=== PATIENT | female | born 2000 | race Two or more races ===

== ENCOUNTER 2022-02-13 04:00 | Emergency (ER) | payer BC ==
[2022-02-13] MEDS ORDERED: Ondansetron 4 MG/2 ML SDV IVPUSH ONE (23:05)
[2022-02-13] MEDS ORDERED: Sodium Chloride 0.9% 1,000 ML IV ONE (23:05)
[2022-02-13] MEDS ORDERED: Acetaminophen 500 MG Tab PO ONE (23:05)
[2022-03-21 12:51] LABS: BLOOD UREA NITROGEN,BUN 6 mg/dL (7.0-18.0); CARBON DIOXIDE,CO2 25.8 mmol/L (21.0-32.0); CHLORIDE,CL 102 mmol/L (98-107); ESTIMATED GFR 143 mL/min (>60); GLUCOSE RANDOM 88 mg/dL (74-106); POTASSIUM,K 3.6 mmol/L (3.5-5.1); SODIUM,NA 136 mmol/L (136-145)
== END 2022-02-14 01:10 | disposition home or self-care (01) ==
LOC: MW.ED 04:00
DX: R51.9 Headache, unspecified (principal); Z20.822 Contact with and (suspected) exposure to COVID-19
CPT/HCPCS: 36415; 80053; 81001; 84702; 85025; 87635; 96361; 96374; 99284; A9270; J2405; J7030; 99282; U0002

== ENCOUNTER 2022-05-25 07:26 | Emergency (ER) | payer BC ==
[2022-05-25] MEDS ORDERED: Acetaminophen 325 MG Tab PO ONE (08:06)
[2022-05-25 08:21] LABS: CORONAVIRUS COVID-19 NAA NEGATIVE (NEGATIVE); INFLUENZA A NAA POSITIVE (NEGATIVE); INFLUENZA B NAA NEGATIVE (NEGATIVE)
== END 2022-05-25 09:03 | disposition home or self-care (01) ==
LOC: MW.ED 07:26
DX: J10.1 Influenza due to other identified influenza virus with other respiratory manifestations (principal); Z91.030 Bee allergy status; Z20.822 Contact with and (suspected) exposure to COVID-19
CPT/HCPCS: 0240U; 99283; A9270

== ENCOUNTER 2022-07-03 07:19 | Emergency (ER) | payer BC ==
[2022-07-03 08:17] LABS: CORONAVIRUS COVID-19 NAA NEGATIVE (NEGATIVE); INFLUENZA A NAA NEGATIVE (NEGATIVE); INFLUENZA B NAA NEGATIVE (NEGATIVE); RESPIRATORY SYNCYTIAL VIR NAA NEGATIVE (NEGATIVE)
== END 2022-07-03 08:42 | disposition home or self-care (01) ==
LOC: MW.ED 07:19
DX: B34.9 Viral infection, unspecified (principal); Z20.822 Contact with and (suspected) exposure to COVID-19
CPT/HCPCS: 0241U; 87651; 99283

== ENCOUNTER 2022-08-20 10:18 | Inpatient (IN) | payer BC, MEDICAID ==
[2022-08-20] MEDS ORDERED: Phenylephrine HCl 0.5 MG/5 ML AMP IVPUSH PRN (11:12)
[2022-08-20] MEDS ORDERED: ePHEDrine 50 MG/ML SDV IVPUSH PRN ×2 (11:12)
[2022-08-20] MEDS ORDERED: Ropivacaine HCl/PF 400 MG in Premix Bag 1 BAG EPIDUR SCH (11:15)
[2022-08-20] MEDS ORDERED: Sodium Chloride 0.9% 2.5 ML Syringe FLUSH PRN (11:40)
[2022-08-20] MEDS ORDERED: Tranexamic Acid 1,000 MG in Sodium Chloride 0.9% 100 ML IV PRN (11:40)
[2022-08-20] MEDS ORDERED: Butorphanol 1 MG/ML SDV IVPUSH PRN (11:40)
[2022-08-20] MEDS ORDERED: Carboprost Tromethamine 250 MCG/1 ML Amp IM PRN (11:40)
[2022-08-20] MEDS ORDERED: Lidocaine 1% 50 ML MDV INJECT PRN (11:40)
[2022-08-20] MEDS ORDERED: Sodium Chloride 0.9% 20 ML SDV IV PRN (11:40)
[2022-08-20] MEDS ORDERED: Misoprostol 200 MCG Tab PO PRN (11:40)
[2022-08-20] MEDS ORDERED: Sodium Chloride 0.9% 10 ML Syringe FLUSH PRN (11:40)
[2022-08-20] MEDS ORDERED: Water For Irrigation,Sterile 1,000 ML Container IRR PRN (11:40)
[2022-08-20] MEDS ORDERED: Methylergonovine 0.2 MG/1 ML Amp IM PRN (11:40)
[2022-08-20] MEDS ORDERED: Oxytocin/0.9 % Sodium Chloride 30 UNIT/500 ML BAG IV SCH ×2 (11:45→13:00)
[2022-08-20] MEDS ORDERED: Sodium Chloride 0.9% 100 ML ONE (11:52)
[2022-08-20] MEDS ORDERED: Ampicillin 2 GM Vial ONE (11:52)
[2022-08-20] MEDS: Lactated Ringers 1,000 ML IV SCH (12:07)
[2022-08-20] MEDS ORDERED: Ampicillin 2 GM in Sodium Chloride 0.9% 100 ML IV ONE (12:30)
[2022-08-20] MEDS ORDERED: Misoprostol 25 MCG (1/4 of 100 MCG) Tab VAG PRN ×2 (12:54)
[2022-08-20] MEDS ORDERED: Terbutaline 1 MG/ML SDV SUBCUT PRN (12:54)
[2022-08-20] MEDS: Ampicillin 1 GM in Sodium Chloride 0.9% 50 ML IV SCH ×2 (16:41→20:38)
[2022-08-20] MEDS: Ondansetron 4 MG/2 ML SDV IVPUSH PRN (23:46)
[2022-08-21] MEDS: Ampicillin 1 GM in Sodium Chloride 0.9% 50 ML IV SCH ×3 (00:42→08:13)
[2022-08-21] MEDS: Lactated Ringers 1,000 ML IV SCH ×2 (01:21→02:29)
[2022-08-21] MEDS ORDERED: Dexmedetomidine 200 MCG/2 ML SDV ONE (01:47)
[2022-08-21] MEDS: Ondansetron 4 MG/2 ML SDV IVPUSH PRN (07:16)
[2022-08-21] MEDS ORDERED: Measles, Mumps & Rubella Vaccine 0.5 ML SDV SUBCUT ONE (10:38)
[2022-08-21] MEDS ORDERED: Aluminum Hydroxide/Magnesium Hydroxide/Simethicone XS Susp 30 ML Cup PO PRN (10:38)
[2022-08-21] MEDS ORDERED: oxyCODONE 5 MG Tab PO PRN (10:38)
[2022-08-21] MEDS ORDERED: Bisacodyl 10 MG Supp RECTAL PRN (10:38)
[2022-08-21] MEDS ORDERED: Simethicone 80 MG Tab.Chew PO PRN (10:38)
[2022-08-21] MEDS ORDERED: Acetaminophen 500 MG Tab PO PRN (10:38)
[2022-08-21] MEDS ORDERED: Famotidine 20 MG Tab PO PRN (10:38)
[2022-08-21] MEDS ORDERED: Lanolin 100% Cream 7 GM Tube TOP PRN (10:38)
[2022-08-21] MEDS ORDERED: Acetaminophen/Codeine 300-30 MG Tab PO PRN ×2 (10:38→10:43)
[2022-08-21] MEDS: Benzocaine/Menthol 20%-0.5% Spray 78 GM Cannister TOP PRN (12:11)
[2022-08-21] MEDS: Witch Hazel Medicated Pads 40/Jar TOP PRN (12:11)
[2022-08-21] MEDS: Ibuprofen 800 MG Tab PO PRN (12:11)
[2022-08-21] MEDS: Docusate Sodium 100 MG Cap PO PRN (14:58)
[2022-08-22] MEDS: Ibuprofen 800 MG Tab PO PRN ×3 (00:18→17:28)
[2022-08-22] MEDS: Witch Hazel Medicated Pads 40/Jar TOP PRN (08:06)
[2022-08-22] MEDS: Benzocaine/Menthol 20%-0.5% Spray 78 GM Cannister TOP PRN (08:08)
[2022-08-23] MEDS: Docusate Sodium 100 MG Cap PO PRN (04:46)
[2022-08-23] MEDS: Ibuprofen 800 MG Tab PO PRN (08:19)
== END 2022-08-23 10:17 | disposition home or self-care (01) | DRG 560 ==
LOC: MW.OBCHECK 10:18 → MW.OB 10:20 → MW.OBCHECK 08-21 09:00 → MW.OB 08-21 09:00 → OBSVTOIN 08-21 22:00
PROVIDERS: ADMIT Obstetrics & Gynecology; ATTEND Obstetrics & Gynecology
PROC: 10E0XZZ Delivery of Products of Conception, External Approach (ICD-10-PCS; principal; 2022-08-20)
PROC: 3E0R3BZ Introduction of Anesthetic Agent into Spinal Canal, Percutaneous Approach (ICD-10-PCS; 2022-08-20)
PROC: 00HU33Z Insertion of Infusion Device into Spinal Canal, Percutaneous Approach (ICD-10-PCS; 2022-08-20)
PROC: 0UQMXZZ Repair Vulva, External Approach (ICD-10-PCS; 2022-08-20)
PROC: 0UQJXZZ Repair Clitoris, External Approach (ICD-10-PCS; 2022-08-20)
DX: O42.02 Full-term premature rupture of membranes, onset of labor within 24 hours of rupture (principal); O99.824 Streptococcus B carrier state complicating childbirth; O99.52 Diseases of the respiratory system complicating childbirth; J45.909 Unspecified asthma, uncomplicated; O70.0 First degree perineal laceration during delivery; O71.89 Other specified obstetric trauma; Z37.0 Single live birth; Z3A.40 40 weeks gestation of pregnancy
CPT/HCPCS: 01967; 36415; 51702; 59025; 59409; 84112; 85014; 85018; 85027; 86592; 86850; 86900; 86901; A9270-GY; J0290; J2405; J2590; J3490; J7120

== ENCOUNTER 2023-11-11 14:59 | Emergency (ER) | payer MEDICAID ==
[2023-11-11 16:12] LABS: APPEARANCE,URINE CLEAR; BILIRUBIN,URINE NEGATIVE (NEGATIVE); COLOR,URINE YELLOW; GLUCOSE,URINE NEGATIVE (NEGATIVE); KETONES,URINE NEGATIVE (NEGATIVE); LEUKOCYTE ESTERASE,URINE NEGATIVE (NEGATIVE); NITRITE,URINE NEGATIVE (NEGATIVE); OCCULT BLOOD,URINE TRACE-INTACT (NEGATIVE); PROTEIN,URINE NEGATIVE (NEGATIVE); UROBILINOGEN,URINE 0.2 EU/dL (<2.0)
[2023-11-11 16:22] LABS: BACTERIA,URINE FEW (NEGATIVE); EPITHELIAL CELLS,URINE OCCASIONAL (NONE-FEW); MUCUS,URINE LIGHT (NONE-MOD); RBC,URINE 0-2 (0-2/HPF); WBC,URINE 0-2 (0-5/HPF)
[2023-11-11 17:27] LABS: CANDIDA DNA PROBE NEGATIVE (NEGATIVE); GARDNERELLA DNA PROBE NEGATIVE (NEGATIVE); TRICHOMONAS DNA PROBE NEGATIVE (NEGATIVE)
[2023-11-11] MEDS: cefTRIAXone 500 MG in Lidocaine 1% 1 ML IM ONE ×2 (19:02→19:04)
[2023-11-11 20:06] LABS: C. TRACHOMATIS BY PCR NOT DETECTED; N. GONORRHOEAE BY PCR NOT DETECTED
== END 2023-11-11 19:22 | disposition home or self-care (01) ==
LOC: MW.ED 14:59
DX: N39.0 Urinary tract infection, site not specified (principal); N89.8 Other specified noninflammatory disorders of vagina; Z91.013 Allergy to seafood; Z75.8 Other problems related to medical facilities and other health care
CPT/HCPCS: 81001; 81025; 87480; 87491; 87510; 87591; 87660; 96372; 99284; J0696; J3490

== ENCOUNTER 2024-03-08 12:39 | Emergency (ER) | payer MEDICAID ==
[2024-03-08 13:42] LABS: CORONAVIRUS COVID-19 NAA NEGATIVE (NEGATIVE); INFLUENZA A NAA NEGATIVE (NEGATIVE); INFLUENZA B NAA NEGATIVE (NEGATIVE); RESPIRATORY SYNCYTIAL VIR NAA NEGATIVE (NEGATIVE)
[2024-03-08 13:59] LABS: APPEARANCE,URINE CLEAR; BILIRUBIN,URINE NEGATIVE (NEGATIVE); COLOR,URINE YELLOW; GLUCOSE,URINE NEGATIVE (NEGATIVE); KETONES,URINE TRACE mg/dL (NEGATIVE); LEUKOCYTE ESTERASE,URINE NEGATIVE (NEGATIVE); NITRITE,URINE NEGATIVE (NEGATIVE); OCCULT BLOOD,URINE NEGATIVE (NEGATIVE); PROTEIN,URINE NEGATIVE (NEGATIVE); UROBILINOGEN,URINE 0.2 EU/dL (<2.0)
[2024-03-08] MEDS ORDERED: Ketorolac 30 MG/ML SDV IM ONE (14:12)
== END 2024-03-08 14:51 | disposition home or self-care (01) ==
LOC: MW.ED 12:39
DX: B34.9 Viral infection, unspecified (principal); Z75.8 Other problems related to medical facilities and other health care; Z91.013 Allergy to seafood; Z79.899 Other long term (current) drug therapy
CPT/HCPCS: 0241U; 81003; 81025; 87651; 99283

== ENCOUNTER 2024-06-03 21:52 | Emergency (ER) | payer MEDICAID ==
[2024-06-03 22:55] LABS: BASOPHILS ABSOLUTE AUTO 0.02 K/uL (0.00-0.20); BASOPHILS PERCENT AUTO 0.2 % (0.0-1.0); EOSINOPHILS ABSOLUTE AUTO 0.07 K/uL (0.00-0.45); EOSINOPHILS PERCENT AUTO 0.8 % (0.0-6.0); HEMATOCRIT 34.1 % (37.0-47.0); HEMOGLOBIN 11.6 g/dL (12.0-16.0); IMMATURE GRAN ABSOLUTE AUTO 0.02 K/uL (0.00-0.05); IMMATURE GRAN PERCENT AUTO 0.2 % (0.0-0.4); LYMPHOCYTES ABSOLUTE AUTO 1.84 K/uL (1.00-4.80); LYMPHOCYTES PERCENT AUTO 20.5 % (24.0-44.0); MEAN CORPUSCULAR HEMOGLOBIN 29.9 pg (28.0-32.0); MEAN CORPUSCULAR VOLUME 87.9 fL (83.0-99.0); MEAN PLATELET VOLUME 9.3 fL (9.4-12.3); MONOCYTES ABSOLUTE AUTO 0.55 K/uL (0.00-0.80); MONOCYTES PERCENT AUTO 6.1 % (0.0-8.0); NEUTROPHILS ABSOLUTE AUTO 6.47 K/uL (1.80-7.70); NEUTROPHILS PERCENT AUTO 72.2 % (41.0-71.0); PLATELET COUNT,PLT 280 K/uL (150-400); RED BLOOD CELL COUNT 3.88 M/uL (4.10-5.30); WHITE BLOOD CELL COUNT,WBC 8.97 K/uL (3.9-11.3)
[2024-06-03 23:21] LABS: ALANINE AMINOTRANSFERASE,ALT 18 IU/L (14-63); ALBUMIN 3.5 g/dL (3.4-5.0); ALKALINE PHOSPHATASE 75 U/L (46-116); ASPARTATE AMNIOTRANSFERASE,AST 11 IU/L (15-37); BILIRUBIN TOTAL 0.1 mg/dL (0.2-1.0); BLOOD UREA NITROGEN,BUN 11 mg/dL (7.0-18.0); CALCIUM 9.1 mg/dL (8.5-10.1); CARBON DIOXIDE,CO2 26.9 mmol/L (21.0-32.0); CHLORIDE,CL 102 mmol/L (98-107); CREATININE 0.6 mg/dL (0.6-1.0); EST CRCL DRUG DOSING (CG) 102.95 mL/min; GLUCOSE RANDOM 84 mg/dL (74-106); POTASSIUM,K 3.7 mmol/L (3.5-5.1); SODIUM,NA 137 mmol/L (136-145)
[2024-06-03 23:23] LABS: ESTIMATED GFR 128 mL/min (>60)
== END 2024-06-04 00:33 | disposition home or self-care (01) ==
LOC: MW.ED 21:52
DX: O99.891 Other specified diseases and conditions complicating pregnancy (principal); R00.2 Palpitations; Z91.013 Allergy to seafood; Z79.899 Other long term (current) drug therapy; Z75.8 Other problems related to medical facilities and other health care; Z3A.01 Less than 8 weeks gestation of pregnancy
CPT/HCPCS: 36415; 80053; 84484; 85025; 93005; 93010; 99283; 99285

== ENCOUNTER 2024-07-01 06:18 | Emergency (ER) | payer MEDICAID ==
[2024-07-01 06:39] LABS: BASOPHILS ABSOLUTE AUTO 0.03 K/uL (0.00-0.20); BASOPHILS PERCENT AUTO 0.4 % (0.0-1.0); EOSINOPHILS ABSOLUTE AUTO 0.11 K/uL (0.00-0.45); EOSINOPHILS PERCENT AUTO 1.3 % (0.0-6.0); HEMATOCRIT 35.5 % (37.0-47.0); HEMOGLOBIN 12.6 g/dL (12.0-16.0); IMMATURE GRAN ABSOLUTE AUTO 0.02 K/uL (0.00-0.05); IMMATURE GRAN PERCENT AUTO 0.2 % (0.0-0.4); LYMPHOCYTES ABSOLUTE AUTO 1.88 K/uL (1.00-4.80); LYMPHOCYTES PERCENT AUTO 22.9 % (24.0-44.0); MEAN CORPUSCULAR HEMOGLOBIN 30.5 pg (28.0-32.0); MEAN CORPUSCULAR HGB CONC 35.5 g/dL (32.0-36.0); MEAN PLATELET VOLUME 9.2 fL (9.4-12.3); MONOCYTES ABSOLUTE AUTO 0.42 K/uL (0.00-0.80); MONOCYTES PERCENT AUTO 5.1 % (0.0-8.0); NEUTROPHILS ABSOLUTE AUTO 5.75 K/uL (1.80-7.70); NEUTROPHILS PERCENT AUTO 70.1 % (41.0-71.0); PLATELET COUNT,PLT 323 K/uL (150-400); RED BLOOD CELL COUNT 4.13 M/uL (4.10-5.30); WHITE BLOOD CELL COUNT,WBC 8.21 K/uL (3.9-11.3)
[2024-07-01 07:02] LABS: APPEARANCE,URINE CLEAR; BILIRUBIN,URINE NEGATIVE (NEGATIVE); COLOR,URINE YELLOW; GLUCOSE,URINE NEGATIVE (NEGATIVE); KETONES,URINE NEGATIVE (NEGATIVE); LEUKOCYTE ESTERASE,URINE NEGATIVE (NEGATIVE); NITRITE,URINE NEGATIVE (NEGATIVE); OCCULT BLOOD,URINE NEGATIVE (NEGATIVE); PH,URINE 7.5 (5.0-8.0); PROTEIN,URINE NEGATIVE (NEGATIVE); UROBILINOGEN,URINE 0.2 EU/dL (<2.0)
[2024-07-01 07:04] LABS: A/G RATIO 0.8 (0.9-1.6); ALBUMIN 3.2 g/dL (3.4-5.0); BILIRUBIN TOTAL 0.3 mg/dL (0.2-1.0); CARBON DIOXIDE,CO2 25.4 mmol/L (21.0-32.0); CREATININE 0.5 mg/dL (0.6-1.0); EST CRCL DRUG DOSING (CG) 123.54 mL/min; POTASSIUM,K 3.9 mmol/L (3.5-5.1); PROTEIN TOTAL,TP 7.2 g/dL (6.4-8.2)
== END 2024-07-01 09:31 | disposition home or self-care (01) ==
LOC: MW.ED 06:18
DX: O20.0 Threatened abortion (principal); Z91.013 Allergy to seafood; Z91.018 Allergy to other foods; Z79.899 Other long term (current) drug therapy; Z3A.11 11 weeks gestation of pregnancy
CPT/HCPCS: 36415; 76815; 76815-26; 80053; 81003; 84702; 84703; 85025; 86900; 86901; 99283; 99284

== ENCOUNTER 2025-01-14 06:04 | Inpatient (IN) | payer MEDICAID ==
[2025-01-14] MEDS ORDERED: Ketorolac 30 MG/ML SDV ONE (07:22)
[2025-01-14] MEDS ORDERED: Ondansetron 4 MG/2 ML SDV ONE (07:22)
[2025-01-14] MEDS ORDERED: Dexamethasone Sod Phos Preservative Free 10 MG/ML Vial ONE (07:22)
[2025-01-14] MEDS ORDERED: Ropivacaine 0.5% 5 MG/ML 30 ML SDV ONE (07:22)
[2025-01-14] MEDS ORDERED: Oxytocin 10 Units/1 ML SDV ONE (07:22)
[2025-01-14] MEDS ORDERED: Morphine PF 10 MG/10 ML SDV ONE (07:23)
[2025-01-14] MEDS ORDERED: fentaNYL 100 MCG/2 ML SDV ONE (07:23)
[2025-01-14] MEDS ORDERED: Sodium Chloride 0.9% 2.5 ML Syringe FLUSH PRN ×2 (07:35→10:32)
[2025-01-14] MEDS ORDERED: Sodium Chloride 0.9% 10 ML Syringe FLUSH PRN ×2 (07:35→10:32)
[2025-01-14 07:44] LABS: MEAN PLATELET VOLUME 9.9 fL (9.4-12.3); NRBC ABSOLUTE 0.00 K/uL (0.00-0.02); NRBC PERCENT 0.0 /100WBC (0.0-0.2); PLATELET COUNT,PLT 267 K/uL (150-400); RED BLOOD CELL COUNT 4.58 M/uL (4.10-5.30); WHITE BLOOD CELL COUNT,WBC 11.81 K/uL (3.9-11.3)
[2025-01-14] MEDS ORDERED: Lactated Ringers 1,000 ML IV SCH (07:45)
[2025-01-14] MEDS ORDERED: Oxytocin/0.9 % Sodium Chloride 30 UNIT/500 ML BAG IV SCH ×2 (07:45→10:45)
[2025-01-14] MEDS ORDERED: fentaNYL 100 MCG/2 ML SDV IVPUSH PRN (09:12)
[2025-01-14] MEDS ORDERED: Nalbuphine 10 MG/1 ML Vial IVPUSH PRN (09:12)
[2025-01-14] MEDS ORDERED: Acetaminophen/oxyCODONE 325-5 MG Tab PO PRN (09:12)
[2025-01-14] MEDS ORDERED: Ondansetron 4 MG/2 ML SDV IVPUSH PRN ×2 (09:12→10:32)
[2025-01-14] MEDS ORDERED: Lanolin 100% Cream 7 GM Tube TOP PRN (10:32)
[2025-01-14] MEDS ORDERED: Carboprost Tromethamine 250 MCG/1 mL Vial IM PRN (10:32)
[2025-01-14] MEDS ORDERED: Naloxone 0.4 MG/ML SDV IVPUSH PRN (10:32)
[2025-01-14] MEDS: diphenhydrAMINE 50 MG/ML SDV IVPUSH PRN (12:35)
[2025-01-14] MEDS: Citric Acid/Sodium Citrate Solution 30 ML Cup PO ONE (14:00)
[2025-01-14] MEDS: Ketorolac 30 MG/ML SDV IVPUSH SCH (15:05)
[2025-01-15] MEDS: Ketorolac 30 MG/ML SDV IVPUSH SCH (05:04)
[2025-01-15 05:48] LABS: BASOPHILS ABSOLUTE AUTO 0.02 K/uL (0.00-0.20); BASOPHILS PERCENT AUTO 0.1 % (0.0-1.0); EOSINOPHILS ABSOLUTE AUTO 0.02 K/uL (0.00-0.45); EOSINOPHILS PERCENT AUTO 0.1 % (0.0-6.0); IMMATURE GRAN ABSOLUTE AUTO 0.10 K/uL (0.00-0.05); IMMATURE GRAN PERCENT AUTO 0.6 % (0.0-0.4); LYMPHOCYTES ABSOLUTE AUTO 1.32 K/uL (1.00-4.80); LYMPHOCYTES PERCENT AUTO 7.8 % (24.0-44.0); MEAN PLATELET VOLUME 10.5 fL (9.4-12.3); MONOCYTES ABSOLUTE AUTO 1.27 K/uL (0.00-0.80); MONOCYTES PERCENT AUTO 7.5 % (0.0-8.0); NEUTROPHILS ABSOLUTE AUTO 14.13 K/uL (1.80-7.70); NEUTROPHILS PERCENT AUTO 83.9 % (41.0-71.0); NRBC ABSOLUTE 0.00 K/uL (0.00-0.02); NRBC PERCENT 0.0 /100WBC (0.0-0.2); PLATELET COUNT,PLT 300 K/uL (150-400); RED BLOOD CELL COUNT 3.84 M/uL (4.10-5.30); WHITE BLOOD CELL COUNT,WBC 16.86 K/uL (3.9-11.3)
[2025-01-16 10:28] LABS: PH,UMBILICAL ARTERIAL 7.36 (7.18-7.38); PH,UMBILICAL VENOUS 7.37 (7.25-7.45)
== END 2025-01-16 12:30 | disposition home or self-care (01) | DRG 788 ==
LOC: MW.OBCHECK 06:04 → MW.OB 06:06 → MW.OBCHECK 07:51 → MW.OB 07:55
PROVIDERS: ADMIT Obstetrics & Gynecology; ATTEND Obstetrics & Gynecology Obstetrics
PROC: 10D00Z1 Extraction of Products of Conception, Low, Open Approach (ICD-10-PCS; principal; 2025-01-14 07:59)
DX: O32.1XX0 Maternal care for breech presentation, not applicable or unspecified (principal); Z3A.39 39 weeks gestation of pregnancy; Z37.0 Single live birth; O42.92 Full-term premature rupture of membranes, unspecified as to length of time between rupture and onset of labor; Z79.899 Other long term (current) drug therapy
CPT/HCPCS: 01961; 36415; 59025; 59514; 64488; 82803; 84112; 85025; 85027; 86592; 86850; 86900; 86901; A9270-GY; J0166; J0456; J0665; J0690; J1100; J1200; J1885; J2274; J2371; J2405; J2590; J2795; J3010